=== PATIENT | male | born 1985 | race American Indian/Alaskan Native ===

== ENCOUNTER 2019-05-01 23:13 | Emergency (ER) | payer SELFPAY ==
--- NOTE | 2019-05-01 23:54 | XRay Report ---
XR RIGHT ANKLE 2 VIEWS INDICATION / CLINICAL INFORMATION: fall with swelling and deformities COMPARISON: None available. FINDINGS: BONES / JOINT(S): There is a comminuted and mildly displaced spiral fracture of the distal tibia with intra-articular extension, and an additional mildly displaced transverse fracture of the medial mall eolus. There is a mildly displaced fracture of the lateral malleolus, with assessment slightly subopt imal with only 2 views. SOFT TISSUES: Diffuse soft tissue swelling about the ankle. ADDITIONAL FINDINGS: None. Signer Name: Jacinta Anglin MD Signed: 05/01/2019 11:50 PM Workstation Name: [id number]
[2019-05-02] MEDS ORDERED: MORPHINE 2 MG/1 ML INJ IM ONE (00:10)
--- NOTE | 2019-05-02 00:15 | Emergency Department Report ---
ED Extremity Problem HPI - General Chief complaint: Extremity Injury, Lower Stated complaint: RT ANKLE PAIN Time Seen by Provider: 05/02/19 00:05 Source: patient Mode of arrival: Wheelchair Limitations: No Limitations - History of Present Illness Initial comments: 34 yo M presents to the ED with right ankle injury. Pt states he tripped and fell earlier today at around 4 PM. Pt reports ankle pain and swelling. Denies and numbness or tingling. MD Complaint: extremity pain -: This afternoon Location: right, other (ankle) History of Same: No Severity scale (0 -10): 8 Quality: aching Consistency: constant Improves with: nothing Worsens with: weight bearing, palpation Associated Symptoms: denies other symptoms - Related Data Previous Rx's Medication Instructions Recorded Last Taken Type Ibuprofen [Motrin] 600 mg PO Q6H PRN #20 tablet 11/08/13 Unknown Rx methOCARBAMOL [Robaxin] 750 mg PO Q8H PRN #21 tablet 11/08/13 Unknown Rx cephALEXin [Keflex] 500 mg PO Q12HR #14 cap 05/05/15 Unknown Rx HYDROcodone/APAP 5-325 [Sutton 1 each PO Q6HR PRN #10 tablet 05/02/19 Unknown Rx 5/325] Naproxen [Naprosyn] 500 mg PO BID #20 tablet 05/02/19 Unknown Rx Allergies Allergy/AdvReac Type Severity Reaction Status Date / Time No Known Allergies Allergy Verified 11/08/13 00:21 ED Review of Systems ROS: Stated complaint: RT ANKLE PAIN Other details as noted in HPI Comment: All other systems reviewed and negative Musculoskeletal: as per HPI Neurological: denies: numbness ED Past Medical Hx - Past Medical History Previous Medical History?: No - Surgical History Past Surgical History?: No - Social History Smoking Status: Current Every Day Smoker Substance Use Type: Alcohol - Medications Home Medications: Home Medications Medication Instructions Recorded Confirmed Last Taken Type Ibuprofen [Motrin] 600 mg PO Q6H PRN #20 tablet 11/08/13 05/05/15 Unknown Rx methOCARBAMOL [Robaxin] 750 mg PO Q8H PRN #21 tablet 11/08/13 05/05/15 Unknown Rx cephALEXin [Keflex] 500 mg PO Q12HR #14 cap 05/05/15 Unknown Rx HYDROcodone/APAP 5-325 [Sutton 1 each PO Q6HR PRN #10 tablet 05/02/19 Unknown Rx 5/325] Naproxen [Naprosyn] 500 mg PO BID #20 tablet 05/02/19 Unknown Rx ED Physical Exam - General Limitations: No Limitations General appearance: alert, in no apparent distress - Head Head exam: Present: atraumatic, normocephalic - Eye Eye exam: Present: normal appearance - ENT ENT exam: Present: mucous membranes moist - Neck Neck exam: Present: normal inspection - Respiratory Respiratory exam: Present: normal lung sounds bilaterally. Absent: respiratory distress - Cardiovascular Cardiovascular Exam: Present: regular rate, normal rhythm - GI/Abdominal GI/Abdominal exam: Absent: distended - Extremities Exam Extremities exam: Present: other (severe swelling to right ankle, tenderness present, skin intact, able to move toes; DP pulse palpable; cap refill nml; reports tingling to toes) - Neurological Exam Neurological exam: Present: alert, oriented X3, motor sensory deficit (able to wiggle toes, reports assoc numbness in toes) - Psychiatric Psychiatric exam: Present: normal affect, normal mood - Skin Skin exam: Present: warm, dry, intact, normal color ED Course Vital Signs 05/01/19 05/02/19 05/02/19 23:19 00:37 00:40 Temperature 98.4 F Pulse Rate 84 80 Respiratory 18 16 18 Rate Blood Pressure 123/78 123/68 [Right] O2 Sat by Pulse 99 97 Oximetry ED Medical Decision Making - Radiology Data Radiology results: report reviewed, image reviewed - Medical Decision Making 34 yo M w/ right ankle fracture sustained several hours prior to arrival. DP pulse intact, pt able to move toes, reports some tingling to the toes. [place] splint applied. Pt given orthopedic f/u information. Return precautions given. - Differential Diagnosis fracture, sprain Critical care attestation.: If time is entered above; I have spent that time in minutes in the direct care of this critically ill patient, excluding procedure time. ED Disposition Clinical Impression: Fracture of ankle, bimalleolar, right, closed Disposition: DC- TO HOME OR SELFCARE Is pt being admited?: No Condition: Stable Instructions: Ankle Fracture (ED) Prescriptions: Naproxen [Naprosyn] 500 mg PO BID #20 tablet HYDROcodone/APAP 5-325 [Sutton 5/325] 1 each PO Q6HR PRN #10 tablet PRN Reason: Pain Referrals: PRIMARY CAREMD [Primary Care Provider] - 3-5 Days BOBBY OLIVO MD [Staff Physician] - 3-5 Days [facility] [Outside] - 3-5 Days Time of Disposition: 01:24
[2019-05-02] MEDS ORDERED: HYDROcodone/ACETAMINOPHEN 5-325 MG TAB ONE (01:35)
[2019-05-02] MEDS ORDERED: HYDROcodone/ACETAMINOPHEN 5-325 MG TAB PO ONE (01:48)
[2019-05-02 01:52] VITALS: BP 123/68
== END 2019-05-02 02:00 | disposition home or self-care (01) ==
LOC: ED 23:13
DX: S82.841A Displaced bimalleolar fracture of right lower leg, initial encounter for closed fracture (principal); F17.200 Nicotine dependence, unspecified, uncomplicated; Z79.1 Long term (current) use of non-steroidal anti-inflammatories (NSAID); Z79.899 Other long term (current) drug therapy; W01.198A Fall on same level from slipping, tripping and stumbling with subsequent striking against other object, initial encounter; Y93.89 Activity, other specified; Y92.89 Other specified places as the place of occurrence of the external cause; Y99.8 Other external cause status
CPT/HCPCS: 29515; 73600; 96372; 99284; J2270